=== PATIENT | female | born 1975 | race Caucasian/White ===

== ENCOUNTER 2017-02-10 18:54 | Emergency (ER) | payer OTHER ==
[~2017-02-10] VITALS: Ht 157.5 cm; Wt 79.4 kg
[2017-02-10 19:03] VITALS: BP_SYST 116
[2017-02-10] MEDS ORDERED: MORPHINE SULFATE 10 MG/ML VIAL IM ONE (20:00)
[2017-02-10] MEDS ORDERED: ONDANSETRON 4 MG ODT TAB PO ONE (20:00)
[2017-02-10] MEDS ORDERED: DEXAMETHASONE SOD PHOSPHATE 10 MG/ML VIAL IM ONE (20:00)
[2017-02-10 20:08] LABS: BILIRUBIN,URINE NEGATIVE (NEGATIVE); BLOOD, URINE TRACE (NEGATIVE); CLARITY/URINE SL CLOUDY (CLEAR); COLOR,URINE YELLOW (YELLOW); GLUCOSE,URINE NEGATIVE (NEGATIVE); KETONES,URINE NEGATIVE (NEGATIVE); LEUKOCYTE ESTERASE ,URINE 2+ (NEGATIVE); NITRITE, URINE NEGATIVE (NEGATIVE); PROTEIN URINE NEGATIVE (NEGATIVE); UROBILINOGEN,URINE 0.2 (0.2-1.0)
[2017-02-10 21:11] VITALS: BP_SYST 118
[2017-02-10 21:12] LABS: BACTERIA,URINE MANY /HPF (None Seen)
== END 2017-02-10 21:11 | disposition home or self-care (01) ==
LOC: SED 18:54
DX: M54.5 Low back pain (principal); N39.0 Urinary tract infection, site not specified; J45.909 Unspecified asthma, uncomplicated
CPT/HCPCS: 81000; 81025; 96372; 99284; J1100; J2270; Q0162